=== PATIENT | male | born 1940 | race Hispanic/Latino ===

== ENCOUNTER 2016-12-03 12:30 | Inpatient (IN) | payer MEDICARE, OTHER ==
[~2016-12-03] VITALS: Ht 162.6 cm; Wt 54.0 kg
[~2016-12-03 12:30] MED LIST: NO MEDS
[2016-12-03 13:35] LABS: HEMATOCRIT 42.5 % (39.0-50.0); HEMOGLOBIN 15.8 g/dl (14.0-18.0); IMMATURE GRANULOCYTES 0.2 % (0.0-1.0); MEAN CELL VOLUME 96.2 fL CALC (80.0-100.0); MEAN CORPUSCULAR HGB 35.7 pG CALC (26.0-32.0); MEAN CORPUSCULAR HGB CONC 37.2 g/L CALC (32.0-36.0); NEUT# 3.64 thou/uL (1.82-7.42); RED BLOOD COUNT 4.42 mill/uL (4.70-6.10); RED CELL DISTRI WIDTH 11.9 % (11.5-15.5)
[2016-12-03 13:57] LABS: ALBUMIN 4.2 g/dL (3.2-5.0); ALKALINE PHOSPHATASE 105 u/l (38-126); ANION GAP 15 (6-22 (CALC)); BILIRUBIN, TOTAL 1.4 mg/dL (0.0-1.4); BUN 3 mg/dL (8-23); BUN/CREATININE RATIO 6 (12-20 (CALC)); CARBON DIOXIDE 26 mmol/l (22-30); CHLORIDE 94 mmol/l (95-108); CREATININE 0.5 mg/dL (0.7-1.3); ETHYL ALCOHOL 0 mg/dl (0-30); GFR > 60 ML/MIN (>=60 (CALC)); GFR FOR AFR.AMER. > 60 ML/MIN (>=60 (CALC)); GLUCOSE 147 mg/dL (82-115); POTASSIUM 3.8 mmol/l (3.5-5.1); SGOT/AST 29 u/l (19-48); SGPT/ALT 28 u/l (11-66); SODIUM 131 mmol/l (137-146); TOTAL PROTEIN 7.7 g/dL (6.3-8.2)
[2016-12-03 14:08] LABS: MYOGLOBIN 54 ng/mL (0 - 121)
[2016-12-03 15:19] LABS: BARBITURATES NEGATIVE (NEGATIVE); COCAINE NEGATIVE (NEGATIVE); METHADONE NEGATIVE (NEGATIVE); OXCYCODONE NEGATIVE (NEGATIVE); TETRAHYDROCANNABIONOL NEGATIVE (NEGATIVE); TRICYLIC ANTIDEPRESSANTS NEGATIVE (NEGATIVE)
[2016-12-03 15:51] LABS: URINE BILIRUBIN - DIPSTICK NEGATIVE (NEGATIVE); URINE BLOOD DIPSTICK NEGATIVE (NEGATIVE); URINE CLARITY CLEAR; URINE COLOR YELLOW; URINE GLUCOSE - DIPSTICK NEGATIVE (NEGATIVE); URINE KETONE NEGATIVE (NEGATIVE); URINE LEUK ESTERASE NEGATIVE (NEGATIVE); URINE NITRITE - DIPSTICK NEGATIVE (Negative); URINE PH 5.5 (4.5-8.0); URINE PROTEIN - DIPSTICK NEGATIVE (NEG-TRACE)
[2016-12-03 17:35] VITALS: BP 174/85
[2016-12-03 19:00] VITALS: BP 179/83
[2016-12-03 21:46] VITALS: BP 131/69
[2016-12-04 04:26] VITALS: BP 115/57
[2016-12-04 05:54] LABS: HEMATOCRIT 37.7 % (39.0-50.0); HEMOGLOBIN 13.7 g/dl (14.0-18.0); IMMATURE GRANULOCYTES 0.4 % (0.0-1.0); MEAN CELL VOLUME 97.4 fL CALC (80.0-100.0); MEAN CORPUSCULAR HGB 35.4 pG CALC (26.0-32.0); MEAN CORPUSCULAR HGB CONC 36.3 g/L CALC (32.0-36.0); NEUT# 3.25 thou/uL (1.82-7.42); RED BLOOD COUNT 3.87 mill/uL (4.70-6.10); RED CELL DISTRI WIDTH 12.1 % (11.5-15.5)
[2016-12-04 06:22] LABS: ANION GAP 13 (6-22 (CALC)); BUN 3 mg/dL (8-23); BUN/CREATININE RATIO 7 (12-20 (CALC)); CARBON DIOXIDE 21 mmol/l (22-30); CREATININE 0.5 mg/dL (0.7-1.3); GFR > 60 ML/MIN (>=60 (CALC)); GFR FOR AFR.AMER. > 60 ML/MIN (>=60 (CALC)); GLUCOSE 84 mg/dL (82-115); POTASSIUM 3.5 mmol/l (3.5-5.1); SODIUM 135 mmol/l (137-146)
[2016-12-04 06:25] LABS: CHLORIDE 105 mmol/l (95-108)
[2016-12-04 09:07] VITALS: BP 116/62
[2016-12-04 16:00] VITALS: BP 103/52
[2016-12-04 20:00] VITALS: BP 135/63
[2016-12-05 04:00] VITALS: BP 137/62
[2016-12-05 06:01] LABS: HEMATOCRIT 36.9 % (39.0-50.0); HEMOGLOBIN 13.3 g/dl (14.0-18.0); IMMATURE GRANULOCYTES 0.2 % (0.0-1.0); MEAN CELL VOLUME 98.4 fL CALC (80.0-100.0); MEAN CORPUSCULAR HGB 35.5 pG CALC (26.0-32.0); NEUT# 3.36 thou/uL (1.82-7.42); RED BLOOD COUNT 3.75 mill/uL (4.70-6.10); RED CELL DISTRI WIDTH 12.3 % (11.5-15.5)
[2016-12-05 06:12] LABS: ANION GAP 11 (6-22 (CALC)); CALCIUM 8.8 mg/dL (8.4-10.2); CARBON DIOXIDE 22 mmol/l (22-30); CHLORIDE 106 mmol/l (95-108); CREATININE 0.5 mg/dL (0.7-1.3); GFR > 60 ML/MIN (>=60 (CALC)); GFR FOR AFR.AMER. > 60 ML/MIN (>=60 (CALC)); GLUCOSE 106 mg/dL (82-115); MAGNESIUM 1.3 mg/dL (1.6-2.3); POTASSIUM 3.2 mmol/l (3.5-5.1); SODIUM 136 mmol/l (137-146)
[2016-12-05 06:25] LABS: BUN < 2 mg/dL (8-23); BUN/CREATININE RATIO < 4 (12-20 (CALC))
[2016-12-05 07:51] VITALS: BP 133/74
[2016-12-05 11:31] VITALS: BP 131/73
[2016-12-05 16:10] VITALS: BP 129/72
[2016-12-05 20:40] VITALS: BP 134/66
[2016-12-06 00:40] VITALS: BP 142/71
[2016-12-06 04:50] VITALS: BP 140/64
[2016-12-06 05:25] LABS: HEMATOCRIT 36.3 % (39.0-50.0); HEMOGLOBIN 13.4 g/dl (14.0-18.0); IMMATURE GRANULOCYTES 0.4 % (0.0-1.0); MEAN CELL VOLUME 97.3 fL CALC (80.0-100.0); MEAN CORPUSCULAR HGB 35.9 pG CALC (26.0-32.0); MEAN CORPUSCULAR HGB CONC 36.9 g/L CALC (32.0-36.0); NEUT# 3.36 thou/uL (1.82-7.42); RED BLOOD COUNT 3.73 mill/uL (4.70-6.10); RED CELL DISTRI WIDTH 12.1 % (11.5-15.5)
[2016-12-06 05:38] LABS: ANION GAP 13 (6-22 (CALC)); BUN < 2 mg/dL (8-23); CALCIUM 8.5 mg/dL (8.4-10.2); CARBON DIOXIDE 23 mmol/l (22-30); CHLORIDE 101 mmol/l (95-108); CREATININE 0.4 mg/dL (0.7-1.3); GFR > 60 ML/MIN (>=60 (CALC)); GFR FOR AFR.AMER. > 60 ML/MIN (>=60 (CALC)); GLUCOSE 85 mg/dL (82-115); MAGNESIUM 1.2 mg/dL (1.6-2.3); POTASSIUM 2.9 mmol/l (3.5-5.1); SODIUM 134 mmol/l (137-146)
[2016-12-06 12:28] VITALS: BP 151/71
[2016-12-06] MEDS ORDERED: ZESTRIL/PRIN5 MG/TA1 PO (14:59)
[2016-12-06] MEDS ORDERED: ADLT ASA LOW81 MG PO (14:59)
[2016-12-06] MEDS ORDERED: LORTAB 5-325 MG1 TAB PO (14:59)
[2016-12-06] MEDS ORDERED: OS-CAL 500500 M1 PO (15:00)
[2016-12-06] MEDS ORDERED: MULTIVITAMI1 PO (15:00)
[2016-12-06] MEDS ORDERED: VITAMIN D2000 UNI1 PO (15:03)
[2016-12-06] MEDS ORDERED: MAGNESIUM OXID400 M1 PO (15:03)
[2016-12-06 16:00] VITALS: BP 133/58
[2016-12-06] MEDS ORDERED: VITAMIN D50000 UNIT PO (19:59)
== END 2016-12-06 19:20 | DRG 536 ==
LOC: ED 12:30 → ED-I 14:20 → ED 14:20 → ED-I 16:25 → ED 16:45 → MS2 16:46
PROVIDERS: Emergency Medicine; Nurse Practitioner Family; ADMIT Internal Medicine; ATTEND Internal Medicine
DX: S72.115A Nondisplaced fracture of greater trochanter of left femur, initial encounter for closed fracture (principal); S32.040A Wedge compression fracture of fourth lumbar vertebra, initial encounter for closed fracture; E87.1 Hypo-osmolality and hyponatremia; E83.42 Hypomagnesemia; F10.239 Alcohol dependence with withdrawal, unspecified; F17.290 Nicotine dependence, other tobacco product, uncomplicated; I10 Essential (primary) hypertension; R63.6 Underweight; E87.6 Hypokalemia; W19.XXXA Unspecified fall, initial encounter; Y92.009 Unspecified place in unspecified non-institutional (private) residence as the place of occurrence of the external cause; Z68.20 Body mass index [BMI] 20.0-20.9, adult

== ENCOUNTER 2020-05-21 10:20 | Emergency (ER) | payer MEDICARE, MEDICAID ==
[~2020-05-21] VITALS: Ht 162.6 cm; Wt 57.0 kg
[~2020-05-21 10:20] MED LIST changes: +ADLT ASA LOW81 MG PO; +LORTAB 5-325 MG1 TAB PO; +MAGNESIUM OXID400 M1 PO; +MULTIVITAMI1 PO; +OS-CAL 500500 M1 PO; +VITAMIN D2000 UNI1 PO; +VITAMIN D50000 UNIT PO; +ZESTRIL/PRIN5 MG/TA1 PO
[2020-05-21 11:43] LABS: IMMATURE GRANULOCYTES 0.5 % (0.0-5.0); MEAN CELL VOLUME 102.5 fL CALC (80.0-100.0); MEAN CORPUSCULAR HGB 34.6 pG CALC (26.0-32.0); MEAN CORPUSCULAR HGB CONC 33.8 g/dL CAL (32.0-36.0); NEUT# 4.38 thou/uL (1.82-7.42); RED BLOOD COUNT 5.2 mill/uL (4.70-6.10); RED CELL DISTRI WIDTH 13.9 % (11.5-15.5)
[2020-05-21 11:44] LABS: HEMATOCRIT 53.3 % (39.0-50.0)
[2020-05-21 11:59] LABS: ALKALINE PHOSPHATASE 112 u/l (38-126); BILIRUBIN, TOTAL 1.7 mg/dL (0.0-1.4); BUN 4 mg/dL (8-23); BUN/CREATININE RATIO 6 (12-20 (CALC)); CHLORIDE 93 mmol/l (95-108); CREATININE 0.6 mg/dL (0.7-1.3); GFR > 60 ML/MIN (>=60 (CALC)); GFR FOR AFR.AMER. > 60 ML/MIN (>=60 (CALC)); SGOT/AST 36 u/l (19-48); SODIUM 134 mmol/l (137-146); TOTAL PROTEIN 9.1 g/dL (6.3-8.2)
[2020-05-21 12:03] LABS: ANION GAP 18 (6-22 (CALC)); CARBON DIOXIDE 28 mmol/l (22-30); POTASSIUM 4.5 mmol/l (3.5-5.1)
[2020-05-21 13:39] LABS: URINE BILIRUBIN - DIPSTICK NEGATIVE (NEGATIVE); URINE BLOOD DIPSTICK NEGATIVE (NEGATIVE); URINE COLOR YELLOW; URINE GLUCOSE - DIPSTICK NEGATIVE (NEGATIVE); URINE KETONE 15 mg/dL (NEGATIVE); URINE LEUK ESTERASE NEGATIVE (NEGATIVE); URINE NITRITE - DIPSTICK NEGATIVE (Negative); URINE PROTEIN - DIPSTICK NEGATIVE (NEG-TRACE)
[2020-05-21 17:28] VITALS: BP 179/96
== END 2020-05-21 18:03 | disposition home or self-care (01) ==
LOC: ED 10:20
PROVIDERS: Emergency Medicine
DX: M72.2 Plantar fascial fibromatosis (principal); F17.210 Nicotine dependence, cigarettes, uncomplicated

== ENCOUNTER 2020-07-01 10:25 | Emergency (ER) | payer MEDICARE, MEDICAID ==
[2020-07-01 11:54] LABS: HEMOGLOBIN 15.1 g/dl (14.0-18.0); IMMATURE GRANULOCYTES 0.2 % (0.0-5.0); MEAN CELL VOLUME 96.6 fL CALC (80.0-100.0); MEAN CORPUSCULAR HGB 34.7 pG CALC (26.0-32.0); NEUT# 6.43 thou/uL (1.82-7.42); RED BLOOD COUNT 4.35 mill/uL (4.70-6.10); RED CELL DISTRI WIDTH 12.7 % (11.5-15.5)
[2020-07-01 12:10] LABS: ALKALINE PHOSPHATASE 80 u/l (38-126); BILIRUBIN, TOTAL 1.6 mg/dL (0.0-1.4); BUN 7 mg/dL (8-23); BUN/CREATININE RATIO 13 (12-20 (CALC)); CARBON DIOXIDE 29 mmol/l (22-30); CHLORIDE 83 mmol/l (95-108); CREATININE 0.5 mg/dL (0.7-1.3); GFR > 60 ML/MIN (>=60 (CALC)); GFR FOR AFR.AMER. > 60 ML/MIN (>=60 (CALC)); SGOT/AST 29 u/l (19-48)
[2020-07-01 12:11] LABS: ACT PARTIAL THROMBO TIME 29.9 SECONDS (20.0-32.5); ALBUMIN 3.9 g/dL (3.2-5.0); ANION GAP 12 (6-22 (CALC)); POTASSIUM 3.5 mmol/l (3.5-5.1); PROTHROMBIN TIME 10.5 SECONDS (9.0-12.5); SODIUM 120 mmol/l (137-146); TOTAL PROTEIN 7.2 g/dL (6.3-8.2)
[2020-07-01 15:49] VITALS: BP 114/68
== END 2020-07-01 15:47 | disposition short-term general hospital (02) ==
LOC: ED 10:25
DX: I70.262 Atherosclerosis of native arteries of extremities with gangrene, left leg (principal); M86.8X7 Other osteomyelitis, ankle and foot; F17.200 Nicotine dependence, unspecified, uncomplicated
CPT/HCPCS: Q9967